=== PATIENT | male | born 1965 | race Caucasian/White ===

== ENCOUNTER → 2021-04-09 | Outpatient (REF) ==
--- NOTE | 2021-04-09 16:53 | REP ---
INDICATION: PAIN. COMPARISON: None TECHNIQUE: AP and lateral views FINDINGS: There is disc space narrowing at every level but particularly at the 4 5 and 5 6 level where anterior and posterior osteophytic ridging is the heaviest particularly at C5-6. Even with the swimmer's view the C7-T1 level cannot be evaluated. Vertebral body height and alignment appears to be within normal limits on this limited exam. The facet joints appear to be well aligned bilaterally. IMPRESSION: Chronic changes and exam limitations as described above. <Electronically signed by Martell Ortega > 04/09/21 [id number]
== END ==
LOC: M PLAIMG 14:44
PROVIDERS: ATTEND Internal Medicine
DX: M54.2 Cervicalgia (principal)